=== PATIENT | female | born 1960 | race American Indian/Alaskan Native ===

== ENCOUNTER 2018-05-29 19:06 | Emergency (ER) | payer BC ==
[2018-05-29 19:42] VITALS: BP 155/83; RESP 18; TEMP 98; BMI 42.3
--- NOTE | 2018-05-29 19:55 | ED PDOC ---
Arrival/HPI - General Historian: Patient - History of Present Illness Narrative History of Present Illness (Text): 05/29/18 19:45 57 y o female presents to the Emergency department complaining of L knee pain s/p fall. Pt states she was at school event this evening and states she fell down a flight of stairs around 5:50 pm, thinks that they might have been slippery because they were recently painted. Reports eating dinner prior to event. States she landed on both her knees but states she took the brunt of the fall on her left knee. Localizes pain in L knee to infrapatellar region without radiation to surrounding structures. Rates pain as 3-4/10 currently. Describes pain as "throbbing and pinching", states she may have "heard something pop". Denies prior hx of trauma to affected knee. Denies headache, dizziness, loss of consciousness, chest pain, shortness of breath, nausea, vomiting, d/c, abd pain, urinary complaints, or other symptoms. Past medical history: hypertension, impaired glucose tolerance Past surgical history: denies Allergies: Penicillin - rash; octopus - anaphylaxis Meds: Pt takes blood pressure medicine daily, does not know name of medication Fam hx: Mom - diabetes; father with DM Soc hx: Former smoker quit 12 y ago (smoked 1 pack per week for 10 y); denies EtOH or illicit drug use PMD: Dr. Craven Symptom Onset: Sudden Symptom Course: Unchanged Quality: Aching, Throbbing Severity Level: 3 Context: Walking, School <Rufus Sanders - Last Filed: 05/29/18 23:45> <Mandeep Xiao - Last Filed: 05/30/18 02:28> - General Chief Complaint: Trauma Time Seen by Provider: 05/29/18 19:25 Past Medical History - Provider Review Nursing Documentation Reviewed: Yes - Infectious Disease Hx of Infectious Diseases: None - Cardiac Hx Hypertension: Yes - Psychiatric Hx Substance Use: No - Anesthesia Hx Anesthesia: No <Rufus Sanders - Last Filed: 05/29/18 23:45> Family/Social History Family/Social History: Diabetes Smoking Status: Former Smoker Hx Alcohol Use: No Hx Substance Use: No <Rufus Sanders - Last Filed: 05/29/18 23:45> Allergies/Home Meds <Rufus Sanders - Last Filed: 05/29/18 23:45> <Mandeep Xiao - Last Filed: 05/30/18 02:28> Allergies/Adverse Reactions: Allergies EGG Adverse Reaction (Verified 05/29/18 19:24) RASH peanut Adverse Reaction (Verified 05/29/18 19:24) RASH Penicillins Adverse Reaction (Verified 05/29/18 19:24) RASH strawberry Adverse Reaction (Verified 05/29/18 19:24) NAUSEA Review of Systems - Physician Review All systems were reviewed & negative as marked: Yes - Review of Systems Constitutional: absent: Fatigue Eyes: absent: Vision Changes Respiratory: absent: SOB Cardiovascular: absent: Chest Pain, Syncope Neurological: absent: Dizziness, Gait Changes Hemo/Lymphatic: absent: Easy Bleeding, Easy Bruising <Rufus Sanders - Last Filed: 05/29/18 23:45> Physical Exam Vital Signs Temp Pulse Resp BP Pulse Ox 05/29/18 19:19 98 F 75 18 155/83 H 98 Temperature: Afebrile Blood Pressure: Hypertensive Pulse: Regular Appearance: Positive for: Well-Appearing, Non-Toxic, Comfortable Pain Distress: Mild Mental Status: Positive for: Alert and Oriented X 3 - Systems Exam Head: Present: Atraumatic, Normocephalic Pupils: Present: PERRL Extroacular Muscles: Present: EOMI Conjunctiva: Present: Normal Mouth: Present: Moist Mucous Membranes Neck: Present: Normal Range of Motion Respiratory/Chest: Present: Clear to Auscultation, Good Air Exchange. No: Wheezes, Rales, Rhonchi Cardiovascular: Present: Regular Rate and Rhythm, Normal S1, S2. No: Murmurs, Rub, Gallop Abdomen: Present: Normal Bowel Sounds. No: Tenderness, Distention Back: Present: Normal Inspection. No: Paraspinal Tenderness Lower Extremity: Present: Normal Inspection (Tenderness to palpation at infrapatellar region of L knee; full active and passive ROM of L knee; no crepitus or joint effusion appreciated; no tenderness to palpation at L ankle or L hip joint), Tenderness, Neurovascularly Intact, Capillary Refill < 2 s. No: Edema, CALF TENDERNESS, Cyanosis Neurological: Present: GCS=15, CN II-XII Intact, Speech Normal, Motor Func Grossly Intact, Normal Sensory Function Skin: Present: Warm, Dry, Normal Color. No: Rashes, Erythematous, Laceration, Abrasion Psychiatric: Present: Alert, Oriented x 3, Normal Concentration <Rufus Sanders - Last Filed: 05/29/18 23:45> Vital Signs Temp Pulse Resp BP Pulse Ox 05/29/18 19:19 98 F 75 18 155/83 H 98 <Mandeep Xiao - Last Filed: 05/30/18 02:28> Medical Decision Making ED Course and Treatment: 05/29/18 20:04 Abdomen/Pelvis CT: 57 y o female with L knee pain, r/o fracture. XR Knee 3 view patellar ordered. Pt states she does not want pain medication at this time. Will continue to monitor. 05/29/18 21:05 Reassessed pt at bedside. Discussed XR results with pt. All questions and concerns addressed with pt at bedside. Pt to have knee immoblizer on discharge to home. Can follow with PMD and with Ortho within 1 week of ER d/c. Re-evaluation Time: 21:04 Reassessment Condition: Improving,but remains with symptoms - RAD Interpretation Narrative RAD Interpretations (Text): 05/29/18 20:56 X-ray of L knee reviewed, demonstrates no acute fracture or dislocation. 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 Aware and agree with HPI, clinical findings, plan, and management. Pt, whose past medical history includes hypertension, presented s/p fall with left knee pain. Plan: -- XR Left Knee -- Reassess and disposition - RAD Interpretation Radiology Orders: 05/29/18 20:20 KNEE WITH PATELLA LEFT 3 VIEW [RAD] Stat <Mandeep Xiao - Last Filed: 05/30/18 02:28> - PA / [employer] FARM[employer] / Resident Statement / has reviewed & agrees with the documentation as recorded. ELIZ has examined the patient and agrees with the treatment plan. <Mandeep Xiao - Last Filed: 05/30/18 02:28> Disposition/Present on Arrival - Present on Arrival Any Indicators Present on Arrival: No History of DVT/PE: No History of Uncontrolled Diabetes: No Urinary Catheter: No History of Decub. Ulcer: No History Surgical Site Infection Following: None - Disposition Have Diagnosis and Disposition been Completed?: Yes Disposition Time: 21:30 Patient Plan: Discharge <Rufus Sanders - Last Filed: 05/29/18 23:45> <Mandeep Xiao - Last Filed: 05/30/18 02:28> - Disposition Diagnosis: Left knee injury Disposition: HOME/ ROUTINE Condition: GOOD Discharge Instructions (ExitCare): Knee Pain (DC) Print Language: AUSTRIAN Additional Instructions: Please follow-up with your primary care physician (Dr. Craven) within 1 week after discharge. Please follow-up with Orthopedic Surgery (Dr. Stoll) within 1 week of discharge. Please use knee immoblizer as needed for symptoms. Can take OTC Tylenol or NSAIDs prn for pain. Should symptoms recur or worsen, please call your primary care provider or report to your nearest emergency department. Referrals: Frank Craven MD [Primary Care Provider] - Follow up with primary Edgar Stoll MD [Staff Provider] - Follow up with primary Forms: [place] (S[place]i), WORK NOTE
[2018-05-30 00:42] VITALS: PULSE 88; O2SAT 99
--- NOTE | 2018-05-30 10:41 | RAD ---
Date of service: 05/29/2018 PROCEDURE: Left Knee Radiographs. HISTORY: Posttraumatic left knee pain. COMPARISON: None. FINDINGS: BONES: Normal. No fracture. JOINTS: Normal. No osteoarthritis. JOINT EFFUSION: None. OTHER FINDINGS: None. IMPRESSION: No significant or acute findings to account for/ related to the clinical presentation.
== END 2018-05-30 00:41 | disposition home or self-care (01) ==
LOC: ED 19:06
DX: S89.92XA Unspecified injury of left lower leg, initial encounter (principal); W10.9XXA Fall (on) (from) unspecified stairs and steps, initial encounter; Y92.219 Unspecified school as the place of occurrence of the external cause

== ENCOUNTER 2018-10-11 10:40 | Outpatient (CLI) | payer BC | END 2018-10-11 10:41 | disposition home or self-care (01) | LOC: RAD 10:40 | DX: Z12.31 Encounter for screening mammogram for malignant neoplasm of breast (principal) ==

== ENCOUNTER 2018-11-08 09:56 | Outpatient (CLI) | payer BC | END 2018-11-08 09:57 | disposition home or self-care (01) | LOC: RAD 09:56 ==